=== PATIENT | female | born 1985 | race Caucasian/White ===

== ENCOUNTER 2016-12-07 10:15 | Emergency (ER) | payer OTHER ==
[2016-12-07 10:34] VITALS: BP 140/110
[2016-12-07] MEDS ORDERED: Albuterol/Ipratropium NEB.SOL* Albuterol 2.5 MG/Ipratropium 0.5 MG 3 ML INH ONE (10:38)
--- NOTE | 2016-12-07 10:38 | UC ---
Respiratory Complaint HPI - HPI Summary HPI Summary: Bronchospastic cough, no fevers--has had similar episodes before rx with albuterol and prednisone with relief - History of Current Complaint Chief Complaint: UCGeneralIllness Stated Complaint: CHEST CONGEST,COUGH Time Seen by Provider: 12/07/16 10:32 Hx Obtained From: Patient Hx Last Menstrual Period: 04/21/16 ?: No Onset/Duration: Sudden Onset Timing: Constant Severity Initially: Moderate Severity Currently: Moderate Character: Cough: Nonproductive Aggravating Factors: Nothing Alleviating Factors: Bronchodilator Associated Signs And Symptoms: Positive: Dyspnea, Pleuritic Chest Pain, URI, Nasal Congestion - Allergies/Home Medications Allergies/Adverse Reactions: Allergies Allergy/AdvReac Type Severity Reaction Status Date / Time Cinnamon Allergy Unknown Verified 11/13/16 10:52 Reaction Details Morphine AdvReac Mild Itching Verified 11/13/16 10:52 Home Medications: Home Medications Acetaminophen [Tylenol] 12/07/16 [History] PMH/Surg Hx/FS Hx/Imm Hx Previously Healthy: No Endocrine History Of: Denies: Diabetes, Thyroid Disease, Hyperthyroidism, Hypothyroidism, Dyslipidemia Cardiovascular History Of: Denies: Cardiac Disorders, Hypertension, Pacemaker/ICD, Myocardial Infarction , Congestive Heart Failure, Atrial Fibrillation, Deep Vein Thrombosis, Bleeding Disorders Respiratory History Of: Denies: COPD, Asthma GI/ History Of: Reports: Gastroesophageal Reflux Denies: Ulcer, Gastrointestinal Bleed, Gall Bladder Disease, Kidney Stones, Diverticulitis, Renal Disease, Urosepsis Neurological History Of: 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" Denies: TIA, CVA, Dementia, Migraine Psychological History Of: Reports: Anxiety, Depression Denies: Bipolar Disorder, Schizophrenia, Post Traumatic Stress Disorder Cancer History Of: Reports: Colorectal Cancer - rectal CA--rectal polyps removed surgically Denies: Breast Cancer, Prostate Cancer, Cervical Cancer Other History Of: Negative For: HIV, Hepatitis B, Hepatitis C - Surgical History Surgical History: Yes Surgery Procedure, Year, and Place: rectal surgery 2012 - Family History Known Family History: Positive: None, Other Negative: Renal Disease, Blood Disorder Family History: Mother, schizophrenia and bipolar - Social History 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 Lives: With Family Alcohol Use: Rare Alcohol Amount: an occasional drink Substance Use Type: None Substance Use Comment - Amount & Last Used: hydrocodone Smoking Status (MU): Former Smoker Type: Cigarettes Amount Used/How Often: 5-6 cigarettes/day Have You Smoked in the Last Year: Yes When Did the Patient Quit Smoking/Using Tobacco: 07/01/16 Household Exposure Type: Cigarettes - Immunization History Most Recent Influenza Vaccination: 2013 Most Recent Tetanus Shot: 2012 Review of Systems Constitutional: Negative Skin: Negative Eyes: Negative ENT: Negative Respiratory: Shortness Of Breath, Cough Cardiovascular: Negative Gastrointestinal: Negative Genitourinary: Negative Motor: Negative Neurovascular: Negative Musculoskeletal: Negative Neurological: Negative Psychological: Negative All Other Systems Reviewed And Are Negative: Yes Physical Exam Triage Information Reviewed: Yes Appearance: Well-Appearing, No Pain Distress, Well-Nourished Vital Signs: Initial Vital Signs Temp 97.8 F 12/07/16 10:23 Pulse 114 12/07/16 10:23 Resp 18 12/07/16 10:23 BP 140/110 12/07/16 10:23 Pulse Ox 97 12/07/16 10:23 Vital Signs Reviewed: Yes Eye Exam: Normal Eyes: Positive: Conjunctiva Clear ENT Exam: Normal ENT: Positive: Normal ENT inspection, Hearing grossly normal, Pharynx normal, TMs normal. Negative: Pharyngeal erythema, Nasal congestion, Nasal drainage, Tonsillar swelling, Tonsillar exudate, Trismus, Muffled/hoarse voice Neck exam: Normal Neck: Positive: Supple, Nontender, No Lymphadenopathy Respiratory Exam: Other Respiratory: Positive: Chest non-tender, No accessory muscle use, Respiratory distress - mild, Wheezing Cardiovascular Exam: Normal Cardiovascular: Positive: RRR, No Murmur, Pulses Normal, Brisk Capillary Refill Musculoskeletal Exam: Normal Musculoskeletal: Positive: Strength Intact, ROM Intact, No Edema Neurological Exam: Normal Neurological: Positive: Alert, Muscle Tone Normal Psychological Exam: Normal Skin Exam: Normal Diagnostic Evaluation - Laboratory O2 Sat by Pulse Oximetry: 97 Re-Evaluation - Re-Evaluation First Eval Change: Improved - sat 100% Hr 106, RR 20 Respiratory Course/Dx - Course Course Of Treatment: albuterol, prednisone, increase fluids follow with pcp re- check prn - Differential Dx/Diagnosis Differential Diagnosis/HQI/PQRI: Asthma, Bronchitis, Laryngitis, Lower Resp Infection, Sinusitis Provider Diagnoses: Acute exacerbation of Bronchospasm Discharge - Discharge Plan Condition: Stable Disposition: HOME Prescriptions: Albuterol HFA INHALER* [Ventolin HFA Inhaler*] 2 puff INH Q4H PRN #1 mdi PRN Reason: cough/Shortness of Breath Spacer/Aerosol-Holding Chamber [Aerochamber Plus] 1 mis .SEE ORDER SEE INSTRUCTIONS #1 mis predniSONE TAB* [Deltasone TAB*] 10 mg PO DAILY #26 tab Patient Education Materials: Bronchospasm (ED), How to Use a Metered-Dose Inhaler (ED) Forms: *Work Release Referrals: Piyush Mantilla MD [Primary Care Provider] -
== END 2016-12-07 11:37 | disposition home or self-care (01) ==
LOC: UCEAST 10:15
DX: J98.01 Acute bronchospasm (principal); Z87.891 Personal history of nicotine dependence; Z85.048 Personal history of other malignant neoplasm of rectum, rectosigmoid junction, and anus; K21.9 Gastro-esophageal reflux disease without esophagitis; Z86.69 Personal history of other diseases of the nervous system and sense organs
CPT/HCPCS: 99212; A9270-GY; G0463

== ENCOUNTER 2018-06-21 12:55 | Emergency (ER) | payer BC, MEDICAID ==
[2018-06-21 13:25] VITALS: BP 142/89
--- NOTE | 2018-06-21 13:36 | UC ---
Back Pain HPI - HPI Summary HPI Summary: pt states she had a seizure last wednesday and slid off her chair onto the floor. she has had some L low back pain since. - History of Current Complaint Stated Complaint: LOWER BACK/LEFT SIDE PAIN Time Seen by Provider: 06/21/18 13:18 Hx Last Menstrual Period: 05/30/18 Onset/Duration: Sudden Onset Timing: Constant Pain Intensity: 6 Aggravating Factor(s): Movement Alleviating Factor(s): Rest Associated Signs And Symptoms: Positive: Other - no saddle anesthesia. Negative : Fever, Weakness, Numbness, Tingling, Abdominal Pain, Bladder Incontinence, Bowel Incontinence - Risk Factors Cauda Equina Risk Factors: Negative Epidural Abscess Risk Factors: Negative - Allergies/Home Medications Allergies/Adverse Reactions: Allergies Allergy/AdvReac Type Severity Reaction Status Date / Time cinnamon Allergy Unknown Verified 06/21/18 13:22 Reaction Details morphine AdvReac Itching Verified 06/21/18 13:22 Home Medications: Home Medications Acetaminophen [Tylenol Extra Strength] 500 mg PO ONCE PRN 06/21/18 [History Confirmed 06/21/18] PMH/Surg Hx/FS Hx/Imm Hx - Additional Past Medical History Additional PMH: chronic hip and low back pain Cardiovascular History: Hypertension Neurological History: Seizures Psychological History: Anxiety, Depression Other History Of: Negative For: HIV, Hepatitis B, Hepatitis C - Surgical History Surgical History: Yes Surgery Procedure, Year, and Place: rectal surgery 2012. L hip impingment surgery - Family History Known Family History: Positive: None, Other Negative: Renal Disease, Blood Disorder Family History: Mother, schizophrenia and bipolar - Social History Occupation: Employed Full-time Alcohol Use: Rare Alcohol Amount: an occasional drink Substance Use Type: None Substance Use Comment - Amount & Last Used: hydrocodone Smoking Status (MU): Light Every Day Tobacco Smoker Type: eCigarettes Amount Used/How Often: 5 cigarettes/day Have You Smoked in the Last Year: Yes When Did the Patient Quit Smoking/Using Tobacco: May 22, 2017 Household Exposure Type: Cigarettes - Immunization History Most Recent Influenza Vaccination: 2013 Most Recent Tetanus Shot: 2012 Vaccination Up to Date: Yes Review of Systems Constitutional: Negative Skin: Negative Eyes: Negative ENT: Negative Respiratory: Negative Cardiovascular: Negative Gastrointestinal: Negative Genitourinary: Negative Motor: Negative Neurovascular: Negative Musculoskeletal: Other: - chronic hip and low back pain. acute L low back pain Neurological: Negative Psychological: Negative Is Patient Immunocompromised?: No All Other Systems Reviewed And Are Negative: Yes Physical Exam Triage Information Reviewed: Yes Appearance: Well-Nourished Vital Signs: Initial Vital Signs Temp 98.5 F 06/21/18 13:18 Pulse 85 06/21/18 13:18 Resp 16 06/21/18 13:18 BP 142/89 06/21/18 13:18 Pulse Ox 97 06/21/18 13:18 Eyes: Positive: Conjunctiva Clear ENT: Positive: Pharynx normal, TMs normal. Negative: Nasal congestion, Nasal drainage Neck: Positive: Supple, Nontender, No Lymphadenopathy Respiratory: Positive: Lungs clear, Normal breath sounds Cardiovascular: Positive: RRR, No Murmur Abdomen Description: Positive: Nontender, No Organomegaly, Soft. Negative: Bruit, CVA Tenderness (R), CVA Tenderness (L) Bowel Sounds: Positive: Present Musculoskeletal: Positive: Other: - Cervical, thoracic and lumbar spine are without gross deformity swelling discoloration or bruising. Patient notes tenderness palpation along the paraspinal muscles in the lumbar region on the left. Range of motion is intact throughout. No saddle anesthesia. 5 out of 5 strength and 2+ reflexes 4. Normal steady gait. Neurological: Positive: Alert Psychological: Positive: Age Appropriate Behavior Skin Exam: Normal Diagnostics - Laboratory Diagnostic Studies Completed/Ordered: u/a=trace blood - Radiology No standard instances Radiology Interpretation Completed By: Radiologist - IMPRESSION: Mild levoscoliosis centered at L3. Back Pain Course/Dx - Course Course Of Treatment: no concern for acute abdomen or cauda equina. u/a=trace blood, not large blood to suggest renal injury from fall. no findings to suggest pyelonephritis. no fx on xray - Differential Dx/Diagnosis Provider Diagnoses: Acute L low back pain Discharge - Sign-Out/Discharge Documenting (check all that apply): Patient Departure - Discharge Plan Condition: Stable Disposition: HOME Patient Education Materials: Low Back Strain (ED) Referrals: Gianfranco Green MD [Primary Care Provider] - 5 Days Additional Instructions: START THE ROBAXIN AND NUCYNTA DIRECTED BY YOUR DOCTOR. - Billing Disposition and Condition Condition: STABLE Disposition: Home
--- NOTE | 2018-06-21 13:58 | RAD ---
Indication: Lumbar spine pain 3 views of lumbar spine demonstrates mild levoscoliosis centered at L3. The vertebral bodies appear normal in height. Disc spaces all well-preserved. IMPRESSION: Mild levoscoliosis centered at L3.
== END 2018-06-21 14:16 | disposition home or self-care (01) ==
LOC: UCCORT 12:55
DX: M54.5 Low back pain (principal); G89.29 Other chronic pain; R56.9 Unspecified convulsions; F17.210 Nicotine dependence, cigarettes, uncomplicated; Z88.5 Allergy status to narcotic agent; Z91.018 Allergy to other foods
CPT/HCPCS: 72100; 81003; 99211; G0463